=== PATIENT | male | born 1955 | race Caucasian/White ===

== ENCOUNTER 2023-09-20 13:26 | Outpatient (CLI) | payer MEDICARE, SELFPAY ==
--- NOTE | ~2023-09-20 | PE_ITS ---
EXAMINATION: PET_PETPSMAST_PT DATE: 09/20/2023 15:51 INDICATION: Prostate cancer. TECHNIQUE: 9.159 mCi of piflufolastat F-18 was administered intravenously. Low dose computed tomograp hy (CT) images were acquired from the base of the brain to the proximal thighs for attenuation correc tion and anatomic localization. Automated exposure control was employed. Dose-length product (DLP) wa s 983 mGy-cm. Positron emission tomography (PET) images were acquired in the same distribution. COMPARISON: None FINDINGS: Head/neck: There are no pathologically enlarged lymph nodes. Chest: There is mild emphysema. A calcified right lung nodule and calcified right hilar and mediastin al lymph nodes are consistent with old granulomatous disease. No pleural effusion. The heart size is normal. No pericardial effusion. There is a small sliding hernia. Abdomen/pelvis/proximal thighs: There is diffuse hepatic steatosis. There are cysts in the liver shruthi uring up to 2.6 cm. The gallbladder, spleen, pancreas, adrenal glands, and kidneys are normal. There is a left inguinal hernia containing fat. The prostate is enlarged with increased activity with exten maki to the left seminal vesicle, left side of the rectum, and left levator muscles with maximum SUV of 23.5. There is a 14 x 13 mm perirectal node with maximum SUV of 20.9. There is left internal and e xternal lymphadenopathy with increased activity. For example, a left external iliac node measures 3.3 x 2.6 cm with maximum SUV of 18.4. There is no free intraperitoneal fluid. There is a benign bone is land in left pelvis. IMPRESSION: 1. Enlarged prostate with increased activity, consistent with primary malignancy with findings suspic ious for T4 stage. 2. Perirectal, left internal iliac, and left external iliac lymphadenopathy with increased activity, consistent with metastatic disease. Reviewed, dictated and finalized at location A. IMPRESSION: 1. Enlarged prostate with increased activity, consistent with primary malignanc y with findings suspicious for T4 stage. 2. Perirectal, left internal iliac, and left external iliac lymphadenopathy wit h increased activity, consistent with metastatic disease.
== END 2023-09-20 13:27 | disposition home or self-care (01) ==
PROVIDERS: Visit Provider Urology
DX: C61 Malignant neoplasm of prostate (principal); Z19.1 Hormone sensitive malignancy status
CPT/HCPCS: 78815; A9595

== ENCOUNTER 2024-05-18 12:58 | Outpatient (CLI) | payer MEDICARE, SELFPAY ==
--- NOTE | ~2024-05-18 | MR_ITS ---
EXAMINATION: MR abdomen wo/w con DATE: 05/18/2024 14:00 INDICATION: Liver mass. TECHNIQUE: Magnetic resonance imaging (MRI) of the abdomen was performed without and with 19 mL Multi Jayant intravenous contrast. COMPARISON: PET/CT 09/20/2023 FINDINGS: There is diffuse hepatic steatosis. There are cysts in the liver measuring up to 2.4 cm. There is a 1 3 mm hyperenhancing mass without washout in left hepatic lobe. There is a 2.1 cm mass with peripheral hyperenhancement in the spleen. The pancreas and adrenal glands are normal. There are cysts in the k idneys measuring up to 11 mm on the right. There are no dilated loops of bowel. There is diverticulos is of the colon without evidence of diverticulitis. IMPRESSION: 1. 13 mm hyperenhancing mass in left hepatic lobe, most likely a hemangioma or focal nodular hyperpla michelle. 2. Diffuse hepatic steatosis. 3. 2.1 cm splenic mass. This finding is most likely a hemangioma, but metastatic disease or rare prim lia neoplasm cannot be excluded. Consider PET/CT. Reviewed, dictated and finalized at location A. ENT'S LIBRARIAN IMPRESSION: 1. 13 mm hyperenhancing mass in left hepatic lobe, most likely a hemangioma or focal nodular hyperplasia. 2. Diffuse hepatic steatosis. 3. 2.1 cm splenic mass. This finding is most likely a hemangioma, but metastati c disease or rare primary neoplasm cannot be excluded. Consider PET/CT.
== END 2024-05-18 12:59 | disposition home or self-care (01) ==
LOC: MICIMG 13:02
PROVIDERS: PCP Nurse Practitioner Family; Visit Provider Nurse Practitioner Family
DX: K76.9 Liver disease, unspecified (principal); D73.89 Other diseases of spleen; K76.0 Fatty (change of) liver, not elsewhere classified
CPT/HCPCS: 74183; A9577

== ENCOUNTER 2024-06-01 09:36 | Outpatient (CLI) | payer MEDICARE, SELFPAY ==
--- NOTE | ~2024-06-01 | PE_ITS ---
EXAMINATION: PET skull to mid thigh DATE: 06/01/2024 11:34 INDICATION: Splenic mass. TECHNIQUE: Blood glucose level was 95 mg/dL. 10.435 mCi of 18-fluorodeoxyglucose (18-FDG) was adminis tered i.v. Low dose computed tomography (CT) images were acquired from the base of the brain to the p roximal thighs for attenuation correction and anatomic localization. Automated exposure control was e mployed. Dose-length product (DLP) was 1088 mGy-cm. Positron emission tomography (PET) images were ac quired in the same distribution. COMPARISON: PET/CT 09/20/23, abdomen MRI 05/18/2024 FINDINGS: Head/neck: There are no pathologically enlarged lymph nodes. There is a 10 mm nodule in right thyroid lobe without increased activity, likely not clinically significant. Chest: There is mild emphysema. Calcified right lung nodules and calcified right hilar and mediastina l lymph nodes are consistent with old granulomatous disease. There is a normal-sized right hilar lymp h node with maximum SUV of 5.1, likely reactive. There is mild atelectasis bilaterally. No pleural ef fusion. Cardiomegaly is noted. No pericardial effusion. Abdomen/pelvis/proximal thighs: There are cysts in the liver measuring up to 2.2 cm. The gallbladder is normal. There is a 2.1 cm mass in the spleen without increased activity. The pancreas, adrenal gla nds, and kidneys are normal. There are brachytherapy seeds in the prostate. The prostate is moderatel y enlarged. There is prominent fat in the inguinal canals that may be hernias. There is a 9 x 6 mm pe rirectal lymph node without increased activity that previously measured 1.5 x 1.3 cm. There is a 1.6 x 1.3 cm left external iliac node without increased activity with interval improvement. There is no f ree intraperitoneal fluid. There is no osseous malignancy. IMPRESSION: 1. 2.1 cm splenic mass without increased activity, likely benign. 2. Mild perirectal and left external iliac lymphadenopathy with improvement from 09/20/2023, consisten t with metastatic prostate cancer. Reviewed, dictated and finalized at location A. IN[employer] CARRIER IMPRESSION: 1. 2.1 cm splenic mass without increased activity, likely benign. 2. Mild perirectal and left external iliac lymphadenopathy with improvement fro m 09/20/2023, consistent with metastatic prostate cancer.
[2024-06-01 10:05] LABS: Glucose Point of Care 95 mg/dl (65-105)
== END 2024-06-01 09:37 | disposition home or self-care (01) ==
LOC: ANHIMG 09:39
PROVIDERS: PCP Nurse Practitioner Family; Visit Provider Nurse Practitioner Family
DX: K76.9 Liver disease, unspecified (principal); R16.1 Splenomegaly, not elsewhere classified; R16.0 Hepatomegaly, not elsewhere classified; C61 Malignant neoplasm of prostate
CPT/HCPCS: 78815; A9552